=== PATIENT | female | born 1980 | race Caucasian/White ===

== ENCOUNTER 2016-09-08 16:45 | Emergency (ER) | payer BC ==
[2016-09-08 17:22] VITALS: TEMP 98.1; BMI 24.0
[2016-09-08] MEDS ORDERED: ONDANSETRON HCL 4 MG/2 ML VIAL IV ONE (17:37)
[2016-09-08] MEDS ORDERED: MORPHINE 4 MG/ML INJECTION IV ONE (17:37)
--- NOTE | 2016-09-08 17:39 | EDPRACDOC ---
- General Information Chief Complaint: Headache Stated Complaint: MIGRAINE OCHOA SENT FROM URGENT CARE Time Seen by Provider: 09/08/16 17:30 Information Source: Patient Mode Of Arrival: Car Home Medications: Home Medications Alprazolam [Xanax] 0.5 mg PO Q6H PRN 09/08/16 Escitalopram Oxalate [Lexapro] 20 mg PO DAILY 09/08/16 Ondansetron HCl [Zofran] 4 mg PO Q8H PRN #15 tab 09/08/16 Oxycodone HCl/Acetaminophen [Percocet 5-325 mg Tablet] 1 tab PO Q6H PRN #20 tab 09/08/16 Sumatriptan Succinate [Imitrex] 50 mg PO DAILY PRN 09/08/16 TOPIRAMATE (Anticonvulsant) [Topamax] 100 mg PO BID 09/08/16 Allergies/Adverse Reactions: Allergies Allergy/AdvReac Type Severity Reaction Status Date / Time promethazine HCl Allergy Unknown Unknown/See Verified 09/08/16 17:31 [From Phenergan] Comments ciprofloxacin [From Cipro] Allergy Unknown Verified 09/08/16 17:31 Penicillins Allergy Anaphylaxis Verified 09/08/16 17:31 * - History of Present Illness Onset: 1 month intermittent HPI: Pt c/o retroorbital headache with blurred vision, light sensitive, dizziness, numbness in hands, difficulty completing sentences x 1 month. Pt went to PCP and given Topamax and Imitrex without relief. Denies fever, earache, sore throat , congestion, cp, sob, abd pain, changes in bowel or bladder, rash. C/o cough, nausea. Location: Reports: Retroorbital Pain Quality: Reports: Moderate, Throbbing Modifying Factors: improves with: Exposure to light Prior work up: Denies: NO, O, CT, LP, MRI, Neurologist Associated Signs and Symptoms: Reports: Frequent Headaches, Nausea/Vomiting, Vision Changes ED Past Medical History - History Reviewed Yes Nurses notes reviewed and agree except as marked - Patient Medical History GI/ History: Reports: Urinary Tract Infection Psychological History: Denies: Depression, Substance Use Disorder Surgical History: Reports: Cholecystectomy, Other ( section x2) - Family Medical History Reports: Hypertension (mom and dad), Diabetes (mom), Cancer (grandpa with prostate and colon cancer and grandma with breast cancer). Denies: Stroke, Cardiac Disorders - Social Medical History Smoking Status: Never smoker Social History: Denies: Substance Use Disorder ETOH: Social Substance Abuse: None EDM Review of Systems - Review of Systems Constitutional: No Symptoms Reported. negative: Fever, Chills, Weakness, Fatigue, Loss of Appetite Eyes: Blurred Vision, Light Sensitive Ears: No Symptoms Reported. negative: Pain, Hearing Loss, Drainage, Ear Pulling Throat: No Symptoms Reported. negative: Pain, Swelling Nose: No Symptoms Reported. negative: Congestion, Bleeding, Discharge, Injection, Swelling, Deformity, Ecchymosis, Tender, Abrasion, Laceration Mouth: No Symptoms Reported. negative: Pain, Drooling Respiratory: Cough Cardiovascular: No Symptoms Reported. negative: Chest Pain, Palpitations, Syncope, Edema, Orthopnea, PND, Skin Mottling, Cyanosis Gastrointestinal: Nausea Genitourinary: No Symptoms Reported. negative: Dysuria, Hematuria, Frequency, Discharge, Bleeding, Testicular Pain, Neurological: Headache Musculoskeletal: No Symptoms Reported. negative: Neck, Chestwall, Ribs, Back, Shoulder, Arm, Elbow, Forearm, Wrist, Hand, Pelvis, Hip, Femur, Knee, Leg, Ankle , Foot Integumentary: No Symptoms Reported. negative: Itching, Rash, Bruising, Wound Allergic/Immunologic: No Symptoms Reported. negative: Hives, Itching Hematologic: No Symptoms Reported. negative: Lymphadenopathy, Easy Bruising, Easy Bleeding Psychiatric: No Symptoms Reported. negative: Anxiety, Depression, Hallucinations, Insomnia, Suicidal - Physical Exam Constitutional: Alert Oriented to: Time, Person, Place Last recorded Vital Signs: Last Vital Signs Temp 98.1 F 09/08/16 17:21 Pulse 76 09/08/16 17:21 Resp 20 09/08/16 17:21 BP 122/85 09/08/16 17:21 Pulse Ox 100 09/08/16 17:21 Oxygen Pulse Oxygen Saturation 100 O2 Device Room Air Oxygen Flow Rate Fraction of Inspired Oxygen ( FIO2) - HEENT Head: Normal ( normocephalic) Eye Exam: Normal (PERRL, EOMI, Sclera white) Oropharynx: Normal (Pharynx:Moist without exudate,Gums-no swelling) Tympanic Membrane: Normal ENT EAC: Normal TMJ: Normal Nose: No Symptoms Reported (septum midline) Neck: Normal (FROM, trachea at midline) - Respiratory/Cardiovascular Respiratory: Normal - CTA (BBS clear to auscultation without adventitious sounds ) Cardiovascular: Normal (RRR without murmur, gallop or rub) - GI Auscultation: Normal (NABS) Palpation: Normal (Soft,No rebound or guarding, non distended) Tenderness: Non tender - Musculoskeletal Back: Normal (Non-Tender) Extremities: Normal (Normal tone, Pulses 2+ No cyanosis or edema, FROM) - Integumentary Skin: Normal, Warm, Dry Lymphatics: Normal (no adenopathy) - Neurologic Memory Impaired: Normal Motor Function: Normal (Normal tone, Pulses 2+ No cyanosis or edema, FROM) Mood Description: Normal Perception: Normal - Differential Diagnosis Migraine, Mass Lesion, Sinusitis, Acute Benign Cephalgia, Other (MS) - Results 09/08/16 18:03 09/08/16 18:03 - EKG EKG #1 EKG Time: 19:44 Rate: bpm: 66 Manning: Normal Rhythm: NSR Block: None ST: Nonsp (III) - Diagnostic Imaging Head Image interpreted by: Radiologist IMPRESSION: No acute intracranial abnormalities. Chest Image interpreted by: Radiologist IMPRESSION: No active cardiopulmonary disease. Decision Time to Discharge: 20:20 - Departure Disposition: Home Condition: Good Final Diagnosis: Migraine Instructions: Migraine Headache (ED) Education/Counseling Given To: Patient Education/Counseling Given Regarding: Diagnosis, Treatment, Follow Up Referrals: Jr Stacy MD [Primary Care Provider] - One Week Olivier Brian MD [Staff Physician] - One Week Prescriptions: New Ondansetron HCl [Zofran] 4 mg PO Q8H PRN #15 tab PRN Reason: Nausea/Vomiting Oxycodone HCl/Acetaminophen [Percocet 5-325 mg Tablet] 1 tab PO Q6H PRN #20 tab PRN Reason: Pain No Action TOPIRAMATE (Anticonvulsant) [Topamax] 100 mg PO BID Escitalopram Oxalate [Lexapro] 20 mg PO DAILY Alprazolam [Xanax] 0.5 mg PO Q6H PRN PRN Reason: Anxiety Sumatriptan Succinate [Imitrex] 50 mg PO DAILY PRN PRN Reason: Headache Additional Instructions: Return for worse or different symptoms.
[2016-09-08 18:09] LABS: AMORPHOUS OCC; LEUKOCYTES/URINE NEG (NEGATIVE); NITRITE/URINE NEG (NEGATIVE); URINE OCCULT BLOOD NEG (NEG/TRACE)
[2016-09-08 18:15] LABS: AUTOMATED EOSINOPHIL 1.3 % (0-5); AUTOMATED LYMPH 27.6 % (17-44); AUTOMATED MONOCYTE 11.2 % (3-10); AUTOMATED NEUTROPHIL 58.9 % (45-76); MPV 8.9 fL (7.4-10.4)
[2016-09-08 18:22] LABS: BLOOD UREA NITROGEN 11 MG/DL (7-17); CALCIUM 9.3 MG/DL (8.4-10.2); CALCULATED OSMOLALITY 270 MOs/Kg (270-290); CHLORIDE 107 mEq/L (98-107); GLUCOSE 90 MG/DL (70-99); SODIUM LEVEL 141 mEq/L (137-146); TOTAL PROTEIN 7.7 G/DL (6.3-8.2)
[2016-09-08] MEDS ORDERED: METOCLOPRAMIDE 10 MG/2 ML VIAL IV ONE (18:49)
--- NOTE | 2016-09-08 19:01 | DIRPT ---
CLINICAL DATA: Intermittent headaches. Previously treated by primary physician for migraines for 1 month without improvement. Headache since last night. Dizziness. Bilateral hand numbness. Altered mental status. EXAM: CT HEAD WITHOUT CONTRAST TECHNIQUE: Contiguous axial images were obtained from the base of the skull through the vertex without intravenous contrast. COMPARISON: None. FINDINGS: Ventricles and sulci appear symmetrical. No ventricular dilatation. No mass effect or midline shift. No abnormal extra-axial fluid collections. Joya-white matter junctions are distinct. Basal cisterns are not effaced. No evidence of acute intracranial hemorrhage. No depressed skull fractures. Visualized paranasal sinuses and mastoid air cells are not opacified. IMPRESSION: No acute intracranial abnormalities. Electronically Signed By: Gus Butt M.D. On: 09/08/2016 18:58
--- NOTE | 2016-09-08 19:45 | DIRPT ---
CLINICAL DATA: 24 hour history of cough and chest tightness. EXAM: CHEST 2 VIEW COMPARISON: None. FINDINGS: The heart size and mediastinal contours are within normal limits. Both lungs are clear. The visualized skeletal structures are unremarkable. IMPRESSION: No active cardiopulmonary disease. Electronically Signed By: Bassam Kurtz M.D. On: 09/08/2016 19:43
[2016-09-08 19:53] VITALS: BP 103/66; PULSE 69
== END 2016-09-08 20:37 | disposition home or self-care (01) ==
LOC: EDMC 16:45
DX: G43.909 Migraine, unspecified, not intractable, without status migrainosus (principal)
CPT/HCPCS: 36415; 70450; 71020; 80053; 81001; 85025; 93005; 96374; 96375; 99283; J2270; J2405; J2765